=== PATIENT | female | born 1965 | race Caucasian/White ===

== ENCOUNTER → 2025-04-12 | Outpatient (REF) | payer MEDICARE ==
[~2025-04-12] MED LIST: AMLODIPINE BESY10 MG PO; ATORVASTATIN CA10 MG PO; BREO ELLIPTA 21 EACH INH; GLIMEPIRIDE2 MG PO; HYDROCHLOROTHIA25 MG PO; LOSARTAN POTAS100 MG PO; MAGNESIUM200 MG PO; METFORMIN HCL500 M2 PO; NEURONTIN400 MG PO; NEXIUM20 MG PO; OMEGA-31000 MG PO; PEPCID AC10 MG PO; PRECOSE50 MG PO; RYBELSUS3 MG PO; TIZANIDINE HCL4 M1 PO; ULTRAM 50MG50 MG PO; VITAMIN D350 MCG PO
== END ==
LOC: RAD 08:00 → EDSTATUS 04-22 09:30
PROVIDERS: ATTEND Internal Medicine Gastroenterology
DX: Z01.810 Encounter for preprocedural cardiovascular examination (principal); Z12.11 Encounter for screening for malignant neoplasm of colon; Z80.0 Family history of malignant neoplasm of digestive organs; K22.70 Barrett's esophagus without dysplasia
CPT/HCPCS: 93005